=== PATIENT | male | born 1965 | race African-American/Black ===

== ENCOUNTER 2018-05-03 06:01 | Inpatient (IN) | payer OTHER ==
[2018-05-03 06:40] LABS: ADD MAN DIFF? NO
[2018-05-03] MEDS: CEFAZOLIN 2 GM/50 ML (PMX) 50 ML IVPB (06:41)
[2018-05-03 06:45] LABS: WHITE BLOOD COUNT 4.7 10^3/ul (4.8-10.8)
[2018-05-03 06:45] LABS: BASOPHILS % 0.6 % (0.0-2.0); EOSINOPHILS # 0.4 10^3/ul (0.0-0.5); EOSINOPHILS % 7.6 % (0.0-7.0); HEMATOCRIT 42.9 % (42.0-52.0); HEMOGLOBIN 15.8 g/dl (14.0-18.0); LYMPHOCYTES # 1.5 10^3/ul (0.8-2.9); LYMPHOCYTES % 31.6 % (15.0-51.0); MEAN CORPUSCULAR HEMOGLOBIN 31.1 pg (29.0-33.0); MEAN CORPUSCULAR HGB CONC 36.8 g/dl (32.0-37.0); MEAN CORPUSCULAR VOLUME 84.4 fl (82.0-101.0); MEAN PLATELET VOLUME 11.1 fl (7.4-10.4); MONOCYTE # 0.5 10^3/ul (0.3-0.9); MONOCYTES % 9.7 % (0.0-11.0); NEUTROPHIL # 2.4 10^3/ul (1.6-7.5); NEUTROPHILS % 50.3 % (39.0-77.0); PLATELET COUNT 173 10^3/UL (140-415); RED BLOOD COUNT 5.08 10^6/ul (4.70-6.10); RED CELL DISTRIBUTION WIDTH 13.4 % (11.5-14.5)
[2018-05-03] MEDS ORDERED: LACTATED RINGER'S 1,000 ML IV (07:00)
[2018-05-03] MEDS ORDERED: LIDOCAINE 0.5% (MDV) 50 ML INJ (07:00)
[2018-05-03] MEDS ORDERED: GELATIN SIZE 100 SPONGE (07:05)
[2018-05-03 07:14] LABS: POTASSIUM 4.4 mmol/L (3.5-5.1)
[2018-05-03 07:15] LABS: ANION GAP 9 (8-16); BLOOD UREA NITROGEN 10 mg/dl (7-20); CALCIUM 9.2 mg/dl (8.4-10.2); CARBON DIOXIDE 26 mmol/L (21-31); CHLORIDE 110 mmol/L (97-110); CREATININE 0.89 mg/dl (0.61-1.24); GLUCOSE 98 mg/dl (70-220); SODIUM 141 mmol/L (135-144)
[2018-05-03] MEDS ORDERED: CEFAZOLIN 1 GM INJ (07:28)
[2018-05-03] MEDS ORDERED: PROPOFOL 20 ML (07:28)
[2018-05-03] MEDS ORDERED: ROCURONIUM 50 MG INJ ×2 (07:28→09:55)
[2018-05-03] MEDS ORDERED: MIDAZOLAM 1 MG/ML 2 ML INJ (07:29)
[2018-05-03] MEDS ORDERED: EPHEDrine SULFATE 50 MG/5 ML SYG IV (07:30)
[2018-05-03] MEDS ORDERED: HYDROmorphONE 1 MG/5 ML IV SYRINGE IV (07:30)
[2018-05-03] MEDS ORDERED: LABETALOL HCL 20MG INJ IV (07:30)
[2018-05-03] MEDS ORDERED: OXYCODONE/ACETAMINOPHEN (5/325) TAB PO ×2 (07:30)
[2018-05-03] MEDS ORDERED: METOCLOPRAMIDE 10 MG INJ IV (07:30)
[2018-05-03] MEDS ORDERED: ONDANSETRON 4 MG INJ IV ×2 (07:30→12:30)
[2018-05-03] MEDS ORDERED: hydrALAzine 20 MG INJ IV (07:30)
[2018-05-03] MEDS ORDERED: DIPHENHYDRAMINE 50 MG INJ IV (07:30)
[2018-05-03] MEDS ORDERED: FENTAnyl 50 MCG/ML VIAL IV ×3 (07:30)
[2018-05-03] MEDS ORDERED: MEPERIDINE 25 MG INJ IV (07:30)
[2018-05-03] MEDS ORDERED: LABETALOL HCL 20MG INJ (07:42)
[2018-05-03] MEDS: LIDOCAINE 1%/EPI 30 ML INJ (08:43)
[2018-05-03] MEDS: THROMBIN 5000 UNIT VIAL (08:43)
[2018-05-03] MEDS: POLYMYXIN/BACITRACIN 1L IRRIG (08:45)
[2018-05-03] MEDS ORDERED: DEXAMETHASONE 4 MG/ML 1 ML INJ (09:03)
[2018-05-03] MEDS ORDERED: ACETAMINOPHEN 1000MG/100ML IV 100 ML (09:03)
[2018-05-03] MEDS ORDERED: ONDANSETRON 4 MG INJ (09:03)
[2018-05-03] MEDS ORDERED: METOCLOPRAMIDE 10 MG INJ (09:03)
[2018-05-03] MEDS ORDERED: PHENYLephrine (100 MCG/ML) 5ML SYG ×2 (09:13→12:08)
[2018-05-03] MEDS: VANCOMYCIN 1 GM INJ (11:21)
[2018-05-03] MEDS: BUPIVACAINE 0.5% (SDV) 30 ML INJ (11:33)
[2018-05-03] MEDS ORDERED: FENTAnyl 50 MCG/ML VIAL (11:35)
[2018-05-03] MEDS ORDERED: SUGAMMADEX SODIUM 200 MG/2 ML VIAL IV (11:50)
[2018-05-03] MEDS ORDERED: morphine 1 MG/ML 30 ML (PCA) (12:24)
[2018-05-03] MEDS: HYDROmorphONE 1 MG/5 ML IV SYRINGE IV ×3 (12:25→12:49)
[2018-05-03] MEDS ORDERED: DIPHENHYDRAMINE 50 MG CAP PO (12:30)
[2018-05-03] MEDS ORDERED: DIAZEPAM 5 MG TAB PO (12:30)
[2018-05-03] MEDS ORDERED: ACETAMINOPHEN 325 MG TAB PO (12:30)
[2018-05-03] MEDS ORDERED: NALOXONE (0.4 MG/ML) INJ IV (12:30)
[2018-05-03] MEDS ORDERED: ALBUTEROL 0.083% (NEB) 2.5 MG/3 ML AMP HHN (12:30)
[2018-05-03] MEDS ORDERED: NACL 0.9% 3 ML SYG IV (12:30)
[2018-05-03] MEDS ORDERED: IPRATROPIUM (NEB) 0.5 MG/2.5 ML AMP HHN (12:30)
[2018-05-03] MEDS ORDERED: HYDROCODONE/APAP (5/325) TAB PO (12:30)
[2018-05-03] MEDS ORDERED: CEPASTAT LOZENGE MT (12:30)
[2018-05-03] MEDS ORDERED: AL HYDROX/MG HYDROX/SIMETH 30 ML CUP PO (12:30)
[2018-05-03] MEDS ORDERED: BETHANECHOL 25 MG TAB PO (12:30)
[2018-05-03] MEDS ORDERED: ZOLPIDEM 5 MG TAB PO (12:30)
[2018-05-03] MEDS: morphine 1 MG/ML 30 ML (PCA) IV (12:44)
[2018-05-03] MEDS: RANITIDINE 150 MG TAB PO (21:14)
[2018-05-03] MEDS: CYCLOBENZAPRINE 10 MG TAB PO (21:14)
[2018-05-04 05:24] LABS: HEMATOCRIT 38.9 % (42.0-52.0); HEMOGLOBIN 14.2 g/dl (14.0-18.0)
[2018-05-04 06:16] LABS: ANION GAP 12 (8-16); BLOOD UREA NITROGEN 10 mg/dl (7-20); CALCIUM 8.8 mg/dl (8.4-10.2); CARBON DIOXIDE 27 mmol/L (21-31); CHLORIDE 105 mmol/L (97-110); CREATININE 0.96 mg/dl (0.61-1.24); GLUCOSE 114 mg/dl (70-220); POTASSIUM 4.5 mmol/L (3.5-5.1); SODIUM 139 mmol/L (135-144)
[2018-05-04] MEDS ORDERED: NON-FORMULARY/PATIENT OWN MED (Salmeterol Xinaf/Fluticasone* (Advair*) 1 INH) INHALATION (09:00)
[2018-05-04] MEDS: RANITIDINE 150 MG TAB PO (09:45)
[2018-05-04] MEDS: CYCLOBENZAPRINE 10 MG TAB PO (09:45)
[2018-05-04] MEDS: DOCUSATE SODIUM 100 MG CAP PO (09:45)
[2018-05-04] MEDS: FLUTICASONE/VILANTEROL 200-25 INH DEVICE INH (09:45)
[2018-05-04] MEDS: BUPROPION (XL) 150 MG TAB PO (09:45)
[2018-05-04] MEDS: HYDROCODONE/APAP (5/325) TAB PO (10:19)
[2018-05-04] MEDS: KETOROLAC 30 MG INJ IV (10:19)
== END 2018-05-04 14:47 | disposition home or self-care (01) | DRG 517 ==
LOC: REC 06:01 → MS1 13:25
PROC: 0SH004Z Insertion of Internal Fixation Device into Lumbar Vertebral Joint, Open Approach (ICD-10-PCS; principal; 2018-05-03 07:30)
DX: M48.062 Spinal stenosis, lumbar region with neurogenic claudication (principal); G89.29 Other chronic pain; I10 Essential (primary) hypertension; F17.210 Nicotine dependence, cigarettes, uncomplicated; M54.16 Radiculopathy, lumbar region
CPT/HCPCS: 71045; 72110; 80048; 85014; 85018; 85025; 86850; 86900; 86901; 87086; 97116; 97161

== ENCOUNTER 2018-05-13 19:02 | Inpatient (IN) | payer OTHER ==
[2018-05-14 00:15] LABS: ADD MAN DIFF? NO
[2018-05-14 00:18] LABS: BASOPHIL # 0.1 10^3/ul (0.0-0.1); BASOPHILS % 0.6 % (0.0-2.0); EOSINOPHILS # 0.5 10^3/ul (0.0-0.5); HEMATOCRIT 39.4 % (42.0-52.0); HEMOGLOBIN 14.2 g/dl (14.0-18.0); LYMPHOCYTES # 2.1 10^3/ul (0.8-2.9); LYMPHOCYTES % 25.4 % (15.0-51.0); MEAN CORPUSCULAR HEMOGLOBIN 30.7 pg (29.0-33.0); MEAN CORPUSCULAR VOLUME 85.1 fl (82.0-101.0); MEAN PLATELET VOLUME 10.6 fl (7.4-10.4); MONOCYTE # 0.9 10^3/ul (0.3-0.9); NEUTROPHIL # 4.7 10^3/ul (1.6-7.5); NEUTROPHILS % 56.5 % (39.0-77.0); PLATELET COUNT 250 10^3/UL (140-415); RED BLOOD COUNT 4.63 10^6/ul (4.70-6.10); RED CELL DISTRIBUTION WIDTH 13.7 % (11.5-14.5)
[2018-05-14 00:18] LABS: WHITE BLOOD COUNT 8.4 10^3/ul (4.8-10.8)
[2018-05-14] MEDS: ONDANSETRON 4 MG INJ IV (00:21)
[2018-05-14] MEDS: morphine 10 MG INJ IV (00:22)
[2018-05-14 00:35] LABS: ALANINE AMINOTRANSFERASE 34 IU/L (13-69); ALBUMIN 4.1 g/dl (3.3-4.9); ALBUMIN/GLOBULIN RATIO 1.07; ALKALINE PHOSPHATASE 80 IU/L (42-121); ANION GAP 11 (8-16); ASPARTATE AMINO TRANSFERASE 30 IU/L (15-46); BILIRUBIN,INDIRECT 0.3 mg/dl (0-1.1); BILIRUBIN,TOTAL 0.3 mg/dl (0.2-1.3); BLOOD UREA NITROGEN 6 mg/dl (7-20); CALCIUM 8.9 mg/dl (8.4-10.2); CARBON DIOXIDE 27 mmol/L (21-31); CHLORIDE 104 mmol/L (97-110); GLUCOSE 107 mg/dl (70-220); POTASSIUM 3.9 mmol/L (3.5-5.1); SODIUM 138 mmol/L (135-144); TOTAL PROTEIN 7.9 g/dl (6.1-8.1)
[2018-05-14 00:52] LABS: INR 0.93; PROTIME 12.6 Sec (11.9-14.9)
[2018-05-14] MEDS ORDERED: ACETAMINOPHEN 325 MG TAB PO (01:00)
[2018-05-14] MEDS ORDERED: ONDANSETRON 4 MG INJ IV (01:00)
[2018-05-14] MEDS: IOHEXOL 300MG/ML 150 ML BTL (01:20)
[2018-05-14] MEDS: SOD CHLORIDE 0.9% 100 ML (01:20)
[2018-05-14] MEDS ORDERED: MOMETASONE 0.24 GM INHALER INH (04:00)
[2018-05-14] MEDS: SOD CHLORIDE 0.9% 1,000 ML IV (04:41)
[2018-05-14] MEDS: HYDROCODONE/APAP (5/325) TAB PO ×3 (04:45→15:56)
[2018-05-14 05:17] LABS: ADD MAN DIFF? NO
[2018-05-14 05:24] LABS: BASOPHILS % 0.5 % (0.0-2.0); EOSINOPHILS # 0.5 10^3/ul (0.0-0.5); EOSINOPHILS % 5.9 % (0.0-7.0); HEMATOCRIT 35.6 % (42.0-52.0); HEMOGLOBIN 12.7 g/dl (14.0-18.0); LYMPHOCYTES % 26.1 % (15.0-51.0); MEAN CORPUSCULAR HEMOGLOBIN 30.7 pg (29.0-33.0); MEAN CORPUSCULAR HGB CONC 35.7 g/dl (32.0-37.0); MEAN PLATELET VOLUME 10.8 fl (7.4-10.4); MONOCYTES % 13.2 % (0.0-11.0); NEUTROPHIL # 4.1 10^3/ul (1.6-7.5); NEUTROPHILS % 53.9 % (39.0-77.0); PLATELET COUNT 234 10^3/UL (140-415); RED BLOOD COUNT 4.14 10^6/ul (4.70-6.10); RED CELL DISTRIBUTION WIDTH 13.6 % (11.5-14.5)
[2018-05-14 05:24] LABS: WHITE BLOOD COUNT 7.7 10^3/ul (4.8-10.8)
[2018-05-14 05:36] LABS: ANION GAP 11 (8-16); BLOOD UREA NITROGEN 6 mg/dl (7-20); CALCIUM 8.4 mg/dl (8.4-10.2); CARBON DIOXIDE 29 mmol/L (21-31); CHLORIDE 102 mmol/L (97-110); CREATININE 0.93 mg/dl (0.61-1.24); GLUCOSE 96 mg/dl (70-220); POTASSIUM 4.2 mmol/L (3.5-5.1); SODIUM 138 mmol/L (135-144)
[2018-05-14] MEDS: BUPROPION (XL) 150 MG TAB PO (09:11)
[2018-05-14] MEDS: DIAZEPAM 5 MG TAB PO (09:11)
[2018-05-14] MEDS: DOCUSATE SODIUM 100 MG CAP PO (09:11)
[2018-05-14] MEDS: METOPROLOL 25 MG TAB PO (09:17)
[2018-05-14] MEDS: FLUTICASONE/VILANTEROL 100-25 INH (11:19)
[2018-05-14] MEDS ORDERED: HYDROCODONE/APAP (5/325) TAB PO (15:30)
[2018-05-15] MEDS ORDERED: PANTOPRAZOLE (EC) 40 MG TAB PO (06:00)
== END 2018-05-14 16:21 | disposition home or self-care (01) | DRG 921 ==
LOC: E/R 19:02 → MS1 05-14 00:37
DX: M96.842 Postprocedural seroma of a musculoskeletal structure following a musculoskeletal system procedure (principal); Y83.9 Surgical procedure, unspecified as the cause of abnormal reaction of the patient, or of later complication, without mention of misadventure at the time of the procedure; D64.9 Anemia, unspecified; F17.200 Nicotine dependence, unspecified, uncomplicated; F41.9 Anxiety disorder, unspecified; I10 Essential (primary) hypertension; J45.909 Unspecified asthma, uncomplicated; Z98.890 Other specified postprocedural states
CPT/HCPCS: 36415; 71045; 72131; 80048; 80053; 85025; 85610; 86850; 86900; 86901; 87040; 87070; 87081; 93005; 96374; 96375; 99285-25